=== PATIENT | male | born 1990 | race Caucasian/White ===

== ENCOUNTER 2023-06-24 17:19 | Emergency (ER) | payer SELFPAY ==
[2023-06-24 17:35] VITALS: BP 131/84; PULSE 74; RESP 19; TEMP 37; O2SAT 98; BMI 28.7
--- NOTE | 2023-06-24 17:39 | EXP.UTC ---
Discharge Plan Disposition Patient Disposition: Home, Self-Care Condition: Good Prescriptions Prescriptions: New pseudoephedrine HCl [Sudafed 12 Hour] 120 mg tablet extended release 120 mg PO BID PRN (Reason: nasal congestion) Qty: 20 0RF ondansetron 8 mg tablet,disintegrating 8 mg PO TID PRN (Reason: Nausea) Qty: 30 0RF No Action olanzapine [Zyprexa] 20 mg Tablet 20 mg PO DAILY buprenorphine-naloxone 2-0.5 mg film 1 film sublingual DAILY Referrals Follow up/Referrals: Provider,Referral, MD [Primary Care Provider] - See instructions Clinical Impressions Clinical Impression: Upper respiratory infection, Vomiting Stand Alone Forms Stand Alone Forms: Work/School Release Instructions Patient Instructions: DI for Viral Upper Respiratory Infection -- Adult Discharge ED Provider: Gloria Whiting [facility] [place] HPI General Stated complaint: VOMITTING, LG FEVER Time Seen by Provider: 06/24/23 17:43 History of Present Illness Provider Complaint: Congestion, drainage, sore throat, vomiting X 1 day. Low grade fever. Onset (ago): day(s) (1) Relieving factors: none Exacerbating factors: none Associated symptoms: denies other symptoms Treatments prior to arrival: none Related Data Home Medications Medication Instructions Recorded Confirmed buprenorphine 2 mg-naloxone 0.5 mg 1 film sublingual DAILY 06/24/23 06/24/23 sublingual film olanzapine 20 mg tablet (Zyprexa) 20 mg PO DAILY Depression 06/24/23 06/24/23 Previous Rx's Medication Instructions Recorded ondansetron 8 mg disintegrating 8 mg PO TID PRN Nausea #30 tabs 06/24/23 tablet pseudoephedrine HCl 120 mg 120 mg PO BID PRN nasal congestion 06/24/23 tablet,extended release (Sudafed #20 tabs 12 Hour) Allergies Allergy/AdvReac Type Severity Reaction Status Date / Time No Known Allergies Allergy Verified 06/24/23 17:46 [facility] Disclaimer: The information contained in this section may have been updated after the patient was seen, as this information can be updated by other users. Medical History (Updated 06/24/23 @ 17:49 by CIRILO Man) Anxiety Depression Social History Smoking Status: Smoker, status unknown alcohol intake: never current occupational status: employed Travel in the last 8 weeks: None ROS Obtained: Yes All systems reviewed & no additional complaints except as documented Constitutional Constitutional: Reports fever(s) and Reports malaise ENT Ears, Nose, Mouth, and Throat: Reports nasal congestion and Reports sore throat Respiratory Respiratory: Reports cough Gastrointestinal Gastrointestingal: Reports vomiting Physical Exam General General appearance: alert and in no apparent distress Head Head exam: atraumatic, normocephalic and normal inspection Eye Eye exam: Present normal appearance, PERRL and EOMI ENT ENT exam: Present normal exam, mucous membranes moist, TM's normal bilaterally and normal external ear exam Expanded ENT Exam Throat exam: Present other (PND) Neck Neck exam: Present normal inspection, full ROM and trachea midline; Absent meningismus or lymphadenopathy Chest Chest inspection: Present normal inspection and symmetric chest wall rise; Absent tenderness Respiratory Respiratory exam: Present normal lung sounds bilaterally; Absent respiratory distress Cardiovascular Cardiovascular exam: Present regular rate and normal rhythm; Absent JVD Abdominal Exam Abdominal exam: Present soft and normal bowel sounds; Absent distention, tenderness or guarding Extremities Exam Extremities exam: Present normal inspection, full ROM and normal capillary refill; Absent calf tenderness Back Exam Back exam: Present normal inspection; Absent tenderness Neurological Exam Neurological exam: Present alert and oriented X3 Psychiatric Psychiatric exam: Present normal affect and normal mood Skin Skin exam: Present warm, dry, intact and normal color Lymphatic Lympha
[2023-06-24 17:50] VITALS: BP 131/84; PULSE 74; RESP 19; TEMP 37; O2SAT 98
== END 2023-06-24 17:53 | disposition home or self-care (01) ==
PROVIDERS: Emergency Provider Physician Assistant
DX: J06.9 Acute upper respiratory infection, unspecified (principal); R11.10 Vomiting, unspecified; R50.9 Fever, unspecified; R09.81 Nasal congestion; R07.0 Pain in throat; F17.210 Nicotine dependence, cigarettes, uncomplicated; B34.9 Viral infection, unspecified
CPT/HCPCS: 99204; 99212; G0463

== ENCOUNTER 2023-09-18 18:28 | Emergency (ER) | payer MEDICAID, SELFPAY ==
[2023-09-18 18:43] VITALS: BMI 23.6
[2023-09-18] MEDS: TET/DIPHTH/PERT-ADULT 0.5ML SYRINGE 0.5 ML IM (18:45)
[2023-09-18 18:52] VITALS: BP 128/70; PULSE 88; RESP 21; TEMP 37; O2SAT 98
[2023-09-18 18:57] VITALS: BP 128/70; PULSE 88; RESP 21; TEMP 37; O2SAT 98; BMI 23.7
== END 2023-09-18 18:55 | disposition home or self-care (01) ==
LOC: UTC 18:35
PROVIDERS: Emergency Provider Nurse Practitioner; PCP Nurse Practitioner Family
DX: Z23 Encounter for immunization (principal); S61.001A Unspecified open wound of right thumb without damage to nail, initial encounter; W26.0XXA Contact with knife, initial encounter
CPT/HCPCS: 90471; 90715; 99212; G0463

== ENCOUNTER 2023-12-09 07:18 | Emergency (ER) | payer MEDICAID, SELFPAY ==
[2023-12-09 07:20] VITALS: BP 134/91; PULSE 62; RESP 12; TEMP 36.6; O2SAT 98; BMI 27.6
--- NOTE | 2023-12-09 07:31 | HMH.EDGENADL ---
Discharge Plan Disposition Patient Disposition: Home, Self-Care Condition: Good Prescriptions Prescriptions: New pseudoephedrine HCl [Sudafed] 30 mg tablet 30 mg PO Q6H PRN (Reason: nasal congestion) Qty: 20 0RF No Action olanzapine [Zyprexa] 20 mg Tablet 20 mg PO DAILY buprenorphine-naloxone 2-0.5 mg film 1 film sublingual DAILY pseudoephedrine HCl [Sudafed 12 Hour] 120 mg tablet extended release 120 mg PO BID PRN (Reason: nasal congestion) Qty: 20 0RF ondansetron 8 mg tablet,disintegrating 8 mg PO TID PRN (Reason: Nausea) Qty: 30 0RF Referrals Follow up/Referrals: Jung Johnson MD [Primary Care Provider] - See instructions Activity Restrictions/Add. Instructions Additional Instructions/Restrictions: You were seen in the ED today due to headache, congestion, sore throat. Please get plenty of rest and stay hydrated at home. Take Tylenol/ibuprofen for fever or pain. Return to the ED if symptoms worsen or if new concerning symptoms arise. Clinical Impressions Clinical Impression: Viral infection Stand Alone Forms Stand Alone Forms: Work/School Release Discharge ED Provider: Brenden Pollock General Adult HPI General Chief complaint: Upper Respiratory Infection Stated complaint: congestion, sore throat, headache Time Seen by Provider: 12/09/23 07:22 History of Present Illness HPI narrative: Patient is a 33-year-old male with history of anxiety/depression who presents due to flulike symptoms. Patient states for the past 2 days he has had headache, sore throat, congestion. States he was febrile yesterday. Reports he has been coughing. He has been taking Mucinex at home with minimal benefit. Denies any pain elsewhere. Denies any nausea/vomiting/diarrhea. Reports he has had sick contacts with similar symptoms. Related Data Home Medications Medication Instructions Recorded Confirmed buprenorphine 2 mg-naloxone 0.5 mg 1 film sublingual DAILY 06/24/23 06/24/23 sublingual film olanzapine 20 mg tablet (Zyprexa) 20 mg PO DAILY Depression 06/24/23 06/24/23 Previous Rx's Medication Instructions Recorded ondansetron 8 mg disintegrating 8 mg PO TID PRN Nausea #30 tabs 06/24/23 tablet pseudoephedrine HCl 120 mg 120 mg PO BID PRN nasal congestion 06/24/23 tablet,extended release (Sudafed #20 tabs 12 Hour) pseudoephedrine HCl 30 mg tablet 30 mg PO Q6H PRN nasal congestion 12/09/23 (Sudafed) #20 tabs Allergies Allergy/AdvReac Type Severity Reaction Status Date / Time No Known Allergies Allergy Verified 12/09/23 07:37 [facility] Disclaimer: The information contained in this section may have been updated after the patient was seen, as this information can be updated by other users. Medical History (Updated 12/09/23 @ 08:14 by Brenden Pollock MD) Depression Anxiety Social History Smoking Status: Current every day smoker alcohol intake: never current occupational status: employed Travel in the last 8 weeks: None ROS Obtained: Yes All systems reviewed & no additional complaints except as documented Constitutional Constitutional: Reports fever(s) and Reports headache(s) ENT Ears, Nose, Mouth, and Throat: Reports headache(s), Reports nasal congestion and Reports sinus pressure Neurologic Neurologic: Reports headache(s) Physical Exam General General appearance: alert and in no apparent distress Head Head exam: atraumatic, normocephalic and normal inspection Eye Eye exam: Present normal appearance, PERRL and EOMI ENT ENT exam: Present normal exam, normal oropharynx, mucous membranes moist, TM's normal bilaterally and normal external ear exam Neck Neck exam: Present normal inspection, full ROM and trachea midline; Absent meningismus or lymphadenopathy Chest Chest inspection: Present normal inspection and symmetric chest wall rise; Absent tenderness Respiratory Respiratory exam: Present normal lung sounds bilaterally; Absent respiratory distress Cardiovascular Cardiovascular exam: Present regular rate and normal rhythm; Absent JVD Abdominal Exam Abdominal exam: Present soft and normal bowel sounds; Absent distention, tenderness or guarding Extremities Exam Extremities exam: Present normal inspection, full ROM and normal capillary refill; Absent calf tenderness Back Exam Back exam: Present normal inspection; Absent tenderness Neurological Exam Neurological exam: Present alert and oriented X3 Psychiatric Psychiatric exam: Present normal affect and normal mood Skin Skin exam: Present warm, dry, intact and normal color Lymphatic Lymphatic Findings: no adenopathy Medical Decision Making Marvel Inquiry Pt receiving controlled substance: No Vital Signs: 12/09/23 07:20 Temperature 97.8 F Temperature Source Oral Pulse Rate [Left Radial] 62 Respiratory Rate 12 Blood Pressure [Right Arm] 134/91 H Blood Pressure Mean [Right Arm] 105 02 Sat by Pulse Oximetry 98 Oxygen Delivery Method Room Air Lab Data Lab Results 12/09/23 07:31: SARS-CoV-2 (PCR) Not detected, Influenza A Untype (PCR) Not detected, Influenza Type B (PCR) Not detected Orders (Tests/Meds): ED MEDICATIONS Discontinued Medications Generic Name Dose Route Start Last Admin Trade Name Rikki PRN Reason Stop Dose Admin Acetaminophen 1,000 mg 12/09/23 07:29 12/09/23 07:38 Acetaminophen 500mg Tab PO 12/09/23 07:30 1,000 mg ONCE ONE Administration Dexamethasone 10 mg 12/09/23 07:30 12/09/23 07:37 Dexamethasone 4mg Tablet PO 12/09/23 07:31 10 mg ONCE ONE Administration Ibuprofen 600 mg 12/09/23 07:29 12/09/23 07:38 Ibuprofen 600 Mg Tablet PO 12/09/23 07:30 600 mg ONCE ONE Administration Pseudoephedrine HCl 60 mg 12/09/23 07:31 12/09/23 07:40 Pseudoephedrine 30mg Tablet PO 12/09/23 07:32 60 mg ONCE ONE Administration ORDERS Category Date Time Status Rapid PCR Covid and Flu A/B Stat Lab 12/09/23 07:31 Completed Medical Decision Narrative: In summary, patient is healthy 33-year-old male, evaluated in the emergency department today due to headache, sore throat, congestion. On arrival, patient is afebrile, hemodynamically stable. On examination, patient is overall well-appearing. Differential diagnosis includes but is not limited to COVID-19, influenza, other viral upper respiratory infection. Patient given oral Tylenol, ibuprofen, Sudafed, Decadron. Workup initiated including COVID/flu swab. Labs independently interpreted by me and significant for negative COVID, flu. On reevaluation, patient continues to be well-appearing and symptoms have improved. He is appropriate for discharge at this time. Symptoms are consistent with viral infection. Prescription for Sudafed provided. Patient counseled on home care, given strict return precautions and agreeable to plan. 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 I considered the utility of treatment with antibiotics, but decided against this because it would be of little benefit given viral infection. I considered admitting the patient to the hospital for observation, and in shared decision-making with patient, decided on outpatient management. Critical Care Critical Care Time Critical Care Time: No
[2023-12-09 07:35] LABS: Coronavirus 19, PCR Not Detected (NotDetected); Influenza A, PCR Not Detected (NotDetected); Influenza B, PCR Not Detected (NotDetected)
[2023-12-09] MEDS: DEXAMETHASONE 4MG TABLET 10 MG PO (07:37)
[2023-12-09] MEDS: IBUPROFEN 600 MG TABLET PO (07:38)
[2023-12-09] MEDS: ACETAMINOPHEN 500MG TAB 1000 MG PO (07:38)
[2023-12-09] MEDS: PSEUDOEPHEDRINE 30MG TABLET 60 MG PO (07:40)
[2023-12-09 08:00] VITALS: BP 123/83; PULSE 49; O2SAT 97
[2023-12-09 08:14] VITALS: BP 123/83; PULSE 54; RESP 12; TEMP 36.7; O2SAT 98
== END 2023-12-09 08:17 | disposition home or self-care (01) ==
PROVIDERS: Emergency Provider Student in an Organized Health Care Education/Training Program; PCP Internal Medicine Adolescent Medicine
DX: R51.9 Headache, unspecified (principal); R07.0 Pain in throat; R09.81 Nasal congestion; B34.9 Viral infection, unspecified; F17.210 Nicotine dependence, cigarettes, uncomplicated
CPT/HCPCS: 87636; 99283

== ENCOUNTER 2023-12-23 17:36 | Emergency (ER) | payer MEDICAID, SELFPAY ==
[2023-12-23 17:45] VITALS: BP 124/79; PULSE 58; RESP 18; TEMP 36.8; O2SAT 96; BMI 27.3
--- NOTE | 2023-12-23 17:47 | ED_ITS ---
Discharge Plan Disposition Patient Disposition: Home, Self-Care Condition: Good Prescriptions Prescriptions: New ondansetron 4 mg Tablet,Disintegrating 4 mg PO Q8H PRN (Reason: Nausea) Qty: 12 0RF No Action olanzapine [Zyprexa] 20 mg Tablet 20 mg PO DAILY buprenorphine-naloxone 2-0.5 mg film 1 film sublingual DAILY fluoxetine 40 mg capsule 40 mg PO DAILY Patient Comments: TAKE 1 CAPSULE BY MOUTH EVERY DAY Referrals Follow up/Referrals: Jung Johnson MD [Primary Care Provider] - See instructions Activity Restrictions/Add. Instructions Additional Instructions/Restrictions: Go home and rest. It would be best if you rested tomorrow too. Take the zofran if you have nausea. Follow up with your regular doctor. Return if you have worsening symptoms. GO TO THE ER FOR ANY WORSENING SYMPTOMS OR CONCERN. Clinical Impressions Clinical Impression: Closed head injury Stand Alone Forms Stand Alone Forms: Work/School Release Instructions Patient Instructions: DI for Closed Head Injury, Closed Head Injury, Ondansetron Discharge ED Provider: Moiz Chery [facility] General Stated complaint: Dizziness Time Seen by Provider: 12/23/23 18:04 History of Present Illness Provider Complaint: He states that he has had vertigo since last night. He got up this morning to void and fell in his bathroom b/c of the vertigo. He hit his head on the carpeted floor when this happened. Through out today, he has continued to have vertigo. He was unable to go to work this evening because of the vertigo. He denies headache. He has had some episodes of blurry vision today, but he states that he does that at times with his vertigo symptoms. Related Data Home Medications Medication Instructions Recorded Confirmed buprenorphine 2 mg-naloxone 0.5 mg 1 film sublingual DAILY 06/24/23 12/23/23 sublingual film olanzapine 20 mg tablet (Zyprexa) 20 mg PO DAILY Depression 06/24/23 12/23/23 fluoxetine 40 mg capsule 40 mg PO DAILY 12/23/23 12/23/23 Previous Rx's Medication Instructions Recorded ondansetron 4 mg disintegrating 4 mg PO Q8H PRN Nausea #12 tabs 12/23/23 tablet Allergies Allergy/AdvReac Type Severity Reaction Status Date / Time No Known Allergies Allergy Verified 12/23/23 17:56 [facility] Disclaimer: The information contained in this section may have been updated after the patient was seen, as this information can be updated by other users. Medical History (Updated 12/23/23 @ 18:46 by Moiz Chery APRN) Depression Anxiety Social History Smoking Status: Current every day smoker alcohol intake: never current occupational status: employed Travel in the last 8 weeks: None ROS Obtained: Yes All systems reviewed & no additional complaints except as documented Constitutional Constitutional: Denies chills, Denies fever(s) and Reports headache(s) Eyes Eyes: Denies eye discharge ENT Ears, Nose, Mouth, and Throat: Denies disequilibrium, Reports dizziness, Denies otalgia, Reports headache(s) and Denies sore throat Cardiovascular Cardiovascular: Denies chest pain and Denies syncope Respiratory Respiratory: Denies shortness of breath, Denies chest congestion, Denies cough, Denies stridor and Denies wheezing Gastrointestinal Gastrointestingal: Reports as per HPI and nausea; Denies constipation, cramping, diarrhea or vomiting Musculoskeletal Musculoskeletal: Reports system reviewed and no additional complaints, except as documented and Denies arthralgias Integumentary/Breasts Skin/Breast: Denies rash Neurologic Neurologic: Denies confusion, Denies disequilibrium, Reports dizziness, Denies focal weakness, Reports headache(s), Denies paresthesias, Denies seizure-like activity and Denies syncope Allergic/Immunologic Allergic/Immunologic: Denies wheezing Physical Exam General General appearance: alert and in no apparent distress Head Head exam: atraumatic, normocephalic and normal inspection Eye Eye exam: Present normal appearance, PERRL and EOMI ENT ENT exam: Present normal exam, normal oropharynx, mucous membranes moist, TM's normal bilaterally and normal external ear exam Neck Neck exam: Present normal inspection, full ROM and trachea midline; Absent meningismus or lymphadenopathy Chest Chest inspection: Present normal inspection and symmetric chest wall rise; Absent tenderness Respiratory Respiratory exam: Present normal lung sounds bilaterally; Absent respiratory distress Cardiovascular Cardiovascular exam: Present regular rate and normal rhythm; Absent JVD Abdominal Exam Abdominal exam: Present soft and normal bowel sounds; Absent distention, tenderness or guarding Extremities Exam Extremities exam: Present normal inspection, full ROM and normal capillary refill; Absent calf tenderness Back Exam Back exam: Present normal inspection; Absent tenderness Neurological Exam Neurological exam: Present alert, oriented X3, CN II-XII intact, normal gait and reflexes normal; Absent motor sensory deficit Expanded Neurological Exam Speech: Present fluid speech Cranial nerves: Normal: EOM function (II, III, IV, ), facial sensation (V), facial palsy (VII), gag reflex (IX), spinal accessory function (XI) and tongue deviation (XII) Cerebellar function: normal gait Motor strength - LUE: 5/5 Motor strength - RUE: 5/5 Motor strength - LLE: 5/5 Motor strength - RLE: 5/5 Upper motor neuron exam: Normal: juan carlos neglect and sensory extinction Sensory exam upper extremity: Normal: light touch and 2 point discrimination Sensory exam lower extremity: Normal: light touch and 2 point discrimination DTR: 2+: biceps (L), biceps (R), patellar (L), patellar (R), Achilles tendon (L) and Achilles tendon (R) Psychiatric Psychiatric exam: Present normal affect and normal mood Skin Skin exam: Present warm, dry, intact and normal color Lymphatic Lymphatic Findings: no adenopathy Medical Decision Making Medical Records Medical records reviewed: No I reviewed the patient's medical records. Marvel Inquiry Pt receiving controlled substance: No Medical Decision Narrative: He refused transfer to the ER for further evaluation.
[2023-12-23 17:58] VITALS: BP 123/87; BP 124/79; BP 126/81; PULSE 58; PULSE 70; PULSE 71
--- NOTE | 2023-12-23 18:02 | ECG_ITS ---
APPROVED REPORT Exam: Resting ECG HR:57 bpm ECG Measurements Heart Rate 57 AXES ME 173 P 75 QRSd 95 QRS 54 QT 389 T 54 QTc 383 Conclusion SINUS BRADYCARDIA EARLY REPOLARIZATION [ST ELEVATION WITH NORMALLY INFLECTED T-WAVE] BORDERLINE ECG UNCONFIRMED REPORT Electronically signed by : Jung Johnson MD 12/24/2023 11:34:25
[2023-12-23] MEDS: ONDANSETRON 4MG ODT 4 MG SL (18:19)
[2023-12-23 18:49] VITALS: BP 123/87; PULSE 70; RESP 18; TEMP 36.8; O2SAT 96
== END 2023-12-23 18:51 | disposition home or self-care (01) ==
PROVIDERS: Emergency Provider Nurse Practitioner Family; PCP Internal Medicine Adolescent Medicine
DX: S09.90XA Unspecified injury of head, initial encounter (principal); R00.1 Bradycardia, unspecified; R42 Dizziness and giddiness; W19.XXXA Unspecified fall, initial encounter
CPT/HCPCS: 93005; 99212; 99214; G0463

== ENCOUNTER 2024-01-03 19:19 | Emergency (ER) | payer MEDICAID, SELFPAY ==
[2024-01-03 19:20] VITALS: BP 121/75; PULSE 71; RESP 18; TEMP 36.6; O2SAT 98; BMI 27.7
--- NOTE | 2024-01-03 19:46 | ED_ITS ---
Discharge Plan Disposition Patient Disposition: Home, Self-Care Condition: Good Prescriptions Prescriptions: New methylprednisolone [Medrol (Skip)] 4 mg tablets,dose pack See Rx Instructions .Route .COMPLEX 6 Days Qty: 21 0RF Rx Instructions: taper pack; amoxicillin-pot clavulanate 875-125 mg Tablet 1 tab PO Q12H Qty: 20 0RF guaifenesin [Mucinex] 600 mg tablet extended release 12hr 1,200 mg PO BID PRN (Reason: cough) Qty: 20 0RF No Action buprenorphine-naloxone 2-0.5 mg film 1 film sublingual DAILY fluoxetine 40 mg capsule 40 mg PO DAILY Patient Comments: TAKE 1 CAPSULE BY MOUTH EVERY DAY Referrals Follow up/Referrals: Jung Johnson MD [Primary Care Provider] - See instructions Activity Restrictions/Add. Instructions Additional Instructions/Restrictions: * Start antibiotic today. Be sure to complete entire prescription even if feeling better * Monitor temp. Tylenol every 4 hours as needed and / or ibuprofen every 6 hours as needed ( As long as your primary care physician has told you that it ok to take both. For fever/aches/pains ER if no less than 101 despite Tylenol or Motrin * Humidifier/vaporizer or hot steamy shower * Mucinex for your cough and cough suppressant only at night. Be sure to drink lots of water. *Start steroid today. Helps with inflammation therefore, cough and wheezing. Follow directions on the package. Reviewed side effects. Patient reports taking them before. Follow up IMMEDIATELY for new or worsening of symptoms OR no noticeable improvement over the next 48-72 hours. 911 immediately for any life threatening symptoms such as chest pain or difficulty breathing Clinical Impressions Clinical Impression: Sinusitis Stand Alone Forms Stand Alone Forms: Work/School Release Instructions Patient Instructions: DI for Sinusitis, Sinusitis, Acute Bronchitis Discharge ED Provider: Apple Moncada [facility] [place] HPI General Stated complaint: johnna, nausea, cough Mode of Arrival: Ambulatory Source of Information: Patient Limitations: No Limitations Time Seen by Provider: 01/03/24 19:46 Description of Symptoms (Recalled from Triage Doc. by RN): Pt's symptoms are runny nose, URENA, diarrhea, and productive cough. HEENT Symptoms (Recalled from RN notes): Yes Resp Symptoms (Recalled from RN notes): No Skin Symptoms (Recalled from RN notes): No MS Symptoms (Recalled from RN notes): No Functional Status (Recalled from RN notes): n/a History of Present Illness Provider Complaint: Patient states that he has been having sinus congestion for close to a week but yesterday the pressure in his sinuses got worse and he started having drainage in the back of his throat and coughing up some mucous States today the pressure in his sinuses has continued and continued to have a cough so he came in to get checked Related Data Home Medications Medication Instructions Recorded Confirmed buprenorphine 2 mg-naloxone 0.5 mg 1 film sublingual DAILY 06/24/23 01/03/24 sublingual film fluoxetine 40 mg capsule 40 mg PO DAILY 12/23/23 01/03/24 Previous Rx's Medication Instructions Recorded amoxicillin 875 mg-potassium 1 tab PO Q12H #20 tabs 01/03/24 clavulanate 125 mg tablet guaifenesin 600 mg tablet, 1,200 mg (2 x 600 mg) PO BID PRN 01/03/24 extended release 12 hr (Mucinex) cough #20 tabs methylprednisolone 4 mg tablets in See Rx Instructions .Route 01/03/24 a dose pack (Medrol (Skip)) .COMPLEX 6 days #21 tabs Allergies Allergy/AdvReac Type Severity Reaction Status Date / Time No Known Allergies Allergy Verified 01/03/24 19:36 Worker's Comp Is this a Worker's Comp case?: No [facility] Disclaimer: The information contained in this section may have been updated after the patient was seen, as this information can be updated by other users. Medical History (Updated 01/03/24 @ 19:55 by Apple Moncada APRN) Depression Anxiety Social History Smoking Status: Current every day smoker alcohol intake: never current occupational status: employed Travel in the last 8 weeks: None ROS Obtained: Yes All systems reviewed & no additional complaints except as documented and Yes Systems reviewed as appropriate & no additional complaints except as documented Constitutional Constitutional: Reports system reviewed and no additional complaints, except as documented, Reports as per HPI and Reports headache(s) ENT Ears, Nose, Mouth, and Throat: Reports system reviewed and no additional complaints, except as documented, Reports as per HPI, Reports headache(s), Reports sinus pain and Reports sinus pressure Cardiovascular Cardiovascular: Reports system reviewed and no additional complaints, except as documented and Reports as per HPI Respiratory Respiratory: Reports system reviewed and no additional complaints, except as do cumented, Reports as per HPI, Reports chest congestion and Reports cough Gastrointestinal Gastrointestingal: Reports system reviewed and no additional complaints, except as documented and as per HPI Neurologic Neurologic: Reports headache(s) Physical Exam General General appearance: alert and in no apparent distress ENT ENT exam: Present mucous membranes moist Expanded ENT Exam Nose exam: Present sinus tenderness Throat exam: Present other (PND noted) Respiratory Respiratory exam: Present normal lung sounds bilaterally; Absent respiratory distress or wheezes Cardiovascular Cardiovascular exam: Present regular rate, normal rhythm and normal heart sounds Neurological Exam Neurological exam: Present alert, oriented X3 and normal gait Medical Decision Making Marvel Inquiry Pt receiving controlled substance: No Marvel was queried for this patient: No Vital Signs: 01/03/24 19:20 Temperature 97.8 F Temperature Source Oral Pulse Rate [Right Radial] 71 Respiratory Rate 18 Blood Pressure [Right Arm] 121/75 Blood Pressure Mean [Right Arm] 90 Blood Pressure Source [Right Arm] Automatic Cuff Blood Pressure Position [Right Arm] Sitting 02 Sat by Pulse Oximetry 98 Oxygen Delivery Method Room Air
[2024-01-03 20:24] VITALS: BP 121/75; PULSE 71; RESP 18; TEMP 36.6; O2SAT 98
== END 2024-01-03 20:24 | disposition home or self-care (01) ==
PROVIDERS: Emergency Provider Nurse Practitioner; PCP Internal Medicine Adolescent Medicine
DX: J01.90 Acute sinusitis, unspecified (principal); R09.82 Postnasal drip; R05.9 Cough, unspecified; F17.210 Nicotine dependence, cigarettes, uncomplicated
CPT/HCPCS: 99212; 99214; G0463

== ENCOUNTER 2024-03-27 00:16 | Emergency (ER) | payer MEDICAID, SELFPAY ==
[2024-03-27 00:18] VITALS: BP 149/104; PULSE 87; RESP 18; TEMP 37.1; O2SAT 98; BMI 29.5
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
[2024-03-27 00:48] VITALS: BP 149/104; PULSE 89; RESP 21; TEMP 36.7; O2SAT 100
== END 2024-03-27 00:51 ==
PROVIDERS: Emergency Provider Emergency Medicine; PCP Internal Medicine Adolescent Medicine
DX: T75.4XXA Electrocution, initial encounter (principal); Y35.833A Legal intervention involving a conducted energy device, suspect injured, initial encounter; M54.2 Cervicalgia
CPT/HCPCS: 99282

== ENCOUNTER 2024-04-10 14:20 | Emergency (ER) | payer MEDICAID, SELFPAY ==
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
[2024-04-10 14:35] VITALS: BP 148/105; PULSE 70; RESP 20; TEMP 36.8; O2SAT 95; BMI 29.5
[2024-04-10 14:41] VITALS: BP 146/108; PULSE 77; RESP 16; TEMP 36.7
== END 2024-04-10 15:00 | disposition home or self-care (01) ==
PROVIDERS: Emergency Provider Emergency Medicine
DX: L08.9 Local infection of the skin and subcutaneous tissue, unspecified (principal); M54.2 Cervicalgia
CPT/HCPCS: 99283

== ENCOUNTER 2024-05-30 07:02 | Outpatient (CLI) | payer MEDICAID, SELFPAY ==
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
== END 2024-05-30 23:59 | disposition home or self-care (01) ==
LOC: RAD 07:05
PROVIDERS: PCP Nurse Practitioner Family; Visit Provider Nurse Practitioner
DX: K21.9 Gastro-esophageal reflux disease without esophagitis (principal); R09.A2 Foreign body sensation, throat; S19.9XXA Unspecified injury of neck, initial encounter
CPT/HCPCS: 70490

== ENCOUNTER 2024-06-27 17:47 | Outpatient (CLI) | payer OTHER, SELFPAY ==
[2024-06-27 18:33] LABS: Clostridium Difficile A/B, PCR Not Detected (NotDetected); Enteropathogenic E coli Not Detected (NotDetected); Plesimonas Shigalloides, PCR Not Detected (NotDetected); Salmonella, PCR Not Detected (NotDetected); Vibrio Cholerae Not Detected (NotDetected); Vibrio, PCR Not Detected (NotDetected); Yersinia Entercolitica, PCR Not Detected (NotDetected)
[2024-06-27 18:34] LABS: Adenovirus F 40/41, stool Not Detected (NotDetected); Astrovirus Not Detected (NotDetected); Cryptosporidium Not Detected (NotDetected); Cyclospora Cayetanesis Not Detected (NotDetected); Entamoeba histolytica Not Detected (NotDetected); Enterotoxigenic E coli Not Detected (NotDetected); Giardia lamblia Not Detected (NotDetected); Norovirus Not Detected (NotDetected); Rotavirus A Not Detected (NotDetected); Sapovirus Not Detected (NotDetected); Shiga-like toxin E coli Not Detected (NotDetected); Shigella Enterovasive E coli Not Detected (NotDetected)
[2024-06-27 22:57] LABS: Campylobacter Detected (NotDetected); Enteroaggregative E coli Detected (NotDetected)
== END 2024-06-27 23:59 | disposition home or self-care (01) ==
PROVIDERS: PCP Nurse Practitioner Family; Visit Provider Nurse Practitioner Family
DX: A04.5 Campylobacter enteritis (principal); A04.4 Other intestinal Escherichia coli infections; R19.7 Diarrhea, unspecified
CPT/HCPCS: 87507

== ENCOUNTER 2024-08-16 12:12 | Emergency (ER) | payer OTHER, SELFPAY ==
--- NOTE | 2024-08-16 12:24 | XR_ITS ---
PROCEDURE INFORMATION: Exam: XR Chest Exam date and time: 08/16/2024 12:23 PM Age: 34 years old Clinical indication: Shortness of breath; Additional info: SOA, HX of tb TECHNIQUE: Imaging protocol: Radiologic exam of the chest. Views: 2 views. COMPARISON: CT SOFT TISSUE NECK WO CON 05/30/2024 7:13 AM FINDINGS: Lungs: No evidence of pneumonia or interstitial edema. No cavitary lesions to suggest tuberculosis. Pleural spaces: Unremarkable. No pleural effusion. No pneumothorax. Heart/Mediastinum: Unremarkable. No cardiomegaly. Bones/joints: Unremarkable. IMPRESSION: 1. No evidence of pneumonia or interstitial edema. 2. No cavitary lesions to suggest tuberculosis.
[2024-08-16 12:37] VITALS: BP 129/79; PULSE 80; RESP 20; TEMP 36.9; O2SAT 95; BMI 28.0
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
[2024-08-16 14:17] LABS: Coronavirus 19, PCR Not Detected (NotDetected); Influenza A, PCR Not Detected (NotDetected); Influenza B, PCR Not Detected (NotDetected)
[2024-08-16 14:19] VITALS: BP 129/79; PULSE 80; RESP 20; TEMP 36.9
== END 2024-08-16 14:21 | disposition home or self-care (01) ==
PROVIDERS: Emergency Provider Nurse Practitioner Family; PCP Nurse Practitioner Family
DX: J20.9 Acute bronchitis, unspecified (principal); B34.9 Viral infection, unspecified
CPT/HCPCS: 71046; 87636; 99213; G0381

== ENCOUNTER 2024-10-10 09:46 | Day surgery (SDC) | payer OTHER, SELFPAY ==
[2024-10-10 11:10] VITALS: BP 128/73; PULSE 55; RESP 18; TEMP 36.4; O2SAT 97; BMI 28.8
[2024-10-10] MEDS: LACTATED RINGERS 1000ML 1,000 ML 50 ML IV (11:24)
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
--- NOTE | 2024-10-10 11:55 | P.HP_ITS ---
History of Present Illness *Admission Date: 10/10/24 *Reason for visit:: Nausea, vomiting and heartburn *History of present illness: Mr. Solares is a 34-year-old gentleman who is here for diagnostic upper endoscopy secondary to digestive difficulties. He has had abdominal pain, bloating, he artburn and reflux. He has had some diarrhea for 7 months. He did note some dark blood with his stool. He has chronic heartburn and reflux with some nausea. He has not tried any [id number] medications and is currently not on any treatment. He is inquiring about his liver but there is no report of any liver disease and he has not had any liver evaluation. He was tested negative for hepatitis C. He does state that he had a laryngoscope more recently and the ENT physician told him that he had more significant LPR and should have an upper endoscopy. He has not been on PPI therapy. He did have a visit to the ED in June 2024 and had a stool panel that was positive for Campylobacter and enteroaggregative E. coli. [facility] Disclaimer: The information contained in this section may have been updated after the patient was seen, as this information can be updated by other users. Medical History GERD (gastroesophageal reflux disease) Globus sensation Traumatic injury of neck Difficulty swallowing Depression Anxiety Surgical History History of brain surgery History of chest tube placement History of left knee surgery History of ankle surgery bilateral ankles Family History (Updated 10/10/24 @ 11:12 by Caroline Steele RN) Other PTSD (post-traumatic stress disorder) Social History (Updated 10/10/24 @ 11:13 by Caroline Steele RN) Smoking Status: Current every day smoker tobacco type: cigarettes packs per day: 1 alcohol intake: never substance use type: marijuana current occupational status: unemployed Travel in the last 8 weeks: None caffeine: No Have you lived/traveled outside [place] in past 30 days?: No Contact w/someone who lives/traveled outside [place] past 30 days?: No Exposure to someone with infectious disease in past 14 days?: No Do you have a fever (greater than 100.4 F or 38 C)?: No Have you tested positive for COVID-19: Yes Exposed to someone with COVID-19 in past 14 days?: No Do you have a sore throat?: No Do you have a cough?: No Do you have any weakness?: No Are you experiencing any nausea/vomitting?: No Do you have any diarrhea?: No Are you experiencing any unusual bleeding?: No Do you have any muscle aches/pain?: No Do you have any abdominal pain?: No Are you experiencing loss of taste or smell?: No Other Medical History Have you received the Flu Vaccine for this season: No Have you received the Pneumonia Vaccine: No Review of Systems Review of Systems Review of systems (narrative): Negative *Cardiovascular Comments: Negative *Gastrointestinal Comments: Negative *Genitourinary Comments: Negative *Musculoskeletal Comments: Negative *Neurologic Comments: Negative Meds Home Medications and Allergies Home Medications ?Medication ?Instructions ?Recorded ?Confirmed ?Type No Known Home Medications 08/29/24 10/10/24 History New Prescriptions to Start Prescriptions: Allergies Allergy/AdvReac Type Severity Reaction Status Date / Time No Known Allergies Allergy Verified 10/10/24 11:10 Exam Data for Last 24 hours Vital signs and Labs for Last 24 Hours: Temp Pulse Resp BP Pulse Ox O2 Del Method 97.6 F 55 L 18 128/73 97 Room Air 10/10/24 11:10 10/10/24 11:10 10/10/24 11:10 10/10/24 11:10 10/10/24 11:10 10/10/24 11:10 I & O for Last 24 hours: Intake & Output 10/07/24 10/08/24 10/09/24 10/10/24 23:59 23:59 23:59 23:59 Weight 195 lb *Routine HEENT Exam Head: Present normocephalic Eye: Present EOMI and PERRL ENT: Present mucous membranes moist *Routine Neck Exam Neck: Present supple *Routine Respiratory Exam Respiratory: Present CTA bilaterally *Routine Cardiovascular Exam Cardiovascular: Present RRR *Routine Abdominal Exam Abdominal: Present soft and normoactive bowel sounds; Absent tenderness *Routine Rectal Exam Rectal:: deferred *Routine Genitalia Exam Genitalia:: deferred *Routine Extremities Exam Extremities: Absent cyanosis, clubbing or edema *Routine Skin Exam Skin: Present warm; Absent rash *Routine Neurological Exam Neurological: Present alert and oriented X3 Assessment and Plan *Assessment and plan (1) GERD (gastroesophageal reflux disease): Status: Acute Category: Medical Code(s): K21.9 - Gastro-esophageal reflux disease without esophagitis (2) Heartburn: Status: Acute Category: Medical Code(s): R12 - Heartburn (3) Globus sensation: Status: Acute Category: Medical Code(s): R09.A2 - Foreign body sensation, throat (4) Dysphagia: Status: Acute Category: Medical Code(s): R13.10 - Dysphagia, unspecified Plan A/P: 1. GERD with abdominal pain, bloating, heartburn and reflux. He also has some globus/dysphagia is the preprocedural diagnosis. The patient will be anesthetized/sedated using MAC sedation. The patient has been seen and examined. Cardiac and lung assessment prior to the examination is stable. Proceed with planned diagnostic EGD
--- NOTE | 2024-10-10 11:56 | P.PCN_ITS ---
[facility] Procedure Note Date: 10/10/24 Time: 12:16 Procedure Note:: Upper Endoscopy Procedure Report: Esophagogastroduodenoscopy with cold biopsies and TTS balloon dilation Endoscopost: Gallito Cardona II, MD Referring Physician: FELIPE Dee Date of Procedure: October 10, 2024 Equipment: Olympus GIF 190 standard upper endoscope Sedation: MAC sedation Indications: Mr. Solares is a 34-year-old gentleman who is here for diagnostic upper endoscopy secondary to digestive difficulties. He has had abdominal pain, bloating, heartburn and reflux. He has had some diarrhea for 7 months. He did note some dark blood with his stool. He has chronic heartburn and reflux with some nausea. He has not tried any [id number] medications and is currently not on any treatment. He was inquiring about his liver but there is no report of any liver disease and he has not had any liver evaluation. He was tested negative for hepatitis C. He does state that he had a laryngoscope more recently and the ENT physician told him that he had more significant LPR and should have an upper endoscopy. He has not been on PPI therapy. He did have a visit to the ED in June 2024 and had a stool panel that was positive for Campylobacter and enteroaggregative E. coli. Procedure: Prior to the procedure, a history and physical exam was performed, and patient's medications and allergies were reviewed. The risks, benefits and alternatives of the sedation and procedure were discussed with the patient. All questions were answered and informed consent was obtained. The patient was brought to the procedure room. Patient identification and proposed procedure were verified by the physician and the nurse. The patient was placed in a left lateral decubitus position and the scope was passed under direct vision. Throughout the procedure, the patient's blood pressure, pulse, and oxygen saturations were monitored continuously. The upper GI endoscopy was accomplished without difficulty. The patient tolerated the procedure well. Findings: The scope was passed directly into the upper esophagus and advanced to the third portion of the duodenum. The post bulbar duodenum and duodenal bulb were normal with normal mucosa and conniventes. The scope was withdrawn through a normal duodenal bulb and pylorus into the stomach. There was some very mild linear erythema of the antrum consistent with mild linear reactive gastropathy and biopsies were obtained from the antrum. The body and fundus of the stomach were normal. Upon retroflexion there was a very small sliding 1 to 2 cm hiatal hernia. The scope was then withdrawn into the esophagus. There were 3 very short shallow erosions at the GE junction consistent with grade A (LA classification) reflux esophagitis. There also appeared to be very faint distal esophageal varices. There was no ring, corrugation or furrowing. There was no evidence of Calix's esophagus. The entire esophagus was dilated to 54 Portuguese/18 mm with a TTS hydrostatic balloon. There was mild resistance at the cricopharyngeus. The remainder of the esophageal mucosa was normal. Impression: 1. Grade A reflux esophagitis with moderate esophageal dysmotility and very small sliding 1 to 2 cm hiatal hernia 2. Faint grade 1 esophageal varices 3. Mild linear reactive gastropathy Plan: I would like for the patient to begin a resume the omeprazole 40 mg daily. I am going to obtain labs today including CMP, HCV and HCV FibroSure. I will discuss the findings with the patient and family.
[2024-10-10 12:01] VITALS: O2SAT 98
[2024-10-10 12:23] VITALS: BP 125/81; PULSE 88; RESP 16; TEMP 36.3; O2SAT 93
[2024-10-10 12:33] VITALS: BP 130/80; PULSE 90; RESP 16; O2SAT 95
[2024-10-10 12:43] VITALS: BP 121/74; PULSE 61; RESP 16; O2SAT 96
[2024-10-10 12:53] VITALS: BP 122/76; PULSE 65; RESP 16; O2SAT 97
[2024-10-10 12:54] LABS: Basophils # 0.1 K/mm3 (0-0.2); Basophils % 0.7 % (0.1-2.0); Eosinophils # 0.2 K/mm3 (0.0-0.4); Eosinophils % 2.5 % (0.1-12.0); Hematocrit 46.6 % (42.0-52.0); Hemoglobin 16.1 g/dL (14.1-18.0); Lymphocytes # 1.8 K/mm3 (0.7-4.5); Lymphocytes % 20.2 % (10-50); Mean Corpuscular HGB Conc 34.5 g/dL (31.8-35.4); Mean Corpuscular Hemoglobin 29.7 pg (27.0-31.2); Mean Corpuscular Volume 85.8 fl (80-94); Mean Platelet Volume 10.2 fl (7.4-10.4); Monocytes # 0.8 K/mm3 (0.1-1.0); Monocytes % 8.5 % (1.7-9.3); Neutrophils # 5.9 K/mm3 (1.8-7.8); Neutrophils % 67.4 % (37.0-80.0); Platelet Count 250 K/mm3 (142-424); Red Blood Count 5.43 M/mm3 (4.60-6.20); Red Cell Distribution Width 12.7 % (11.5-17.5); White Blood Count 8.8 K/mm3 (4.8-10.8)
[2024-10-10 13:14] LABS: Albumin Level 4.9 g/dl (3.5-5.0); Chloride 104 mmol/L (98-107); Potassium 4.2 mmoL/L (3.5-5.1); Sodium 139 mmol/L (136-145)
[2024-10-10 13:17] LABS: Alanine Aminotransferase 32 U/L (12-78); Albumin/Globulin Ratio 1.9 (1.1-1.8); Alkaline Phosphatase 79 U/L (38-126); Anion Gap 12.2 mEq/L (5-15); Aspartate Amino Transferase 43 U/L (17-59); Bilirubin,Total 1.1 mg/dl (0.2-1.3); Blood Urea Nitrogen 13 mg/dl (9-20); Calcium 8.9 mg/dl (8.4-10.2); Carbon Dioxide 27 mmol/L (22.0-30.0); Creatinine Clearance Estimated 147 mL/min (50-200); Estimated Glomerular Filt Rate 98 ml/min (>60); GFR (African American) 118 ML/MIN (>60); Globulin 2.6 g/dL (1.3-3.2); Glucose 119 mg/dl (74-100); Total Protein,Serum 7.5 g/dl (6.3-8.2)
[2024-10-10 14:07] LABS: Hepatitis C Ab Qual. W/ RFX NEGATIVE (Negative)
[2024-10-13 06:21] LABS: ALT (SGPT) P5P 24 IU/L (0-55); Alpha 2-Macroglobulins, Qn 137 mg/dL (110-276); Apolipoprotein A-1 135 mg/dL (101-178); Bilirubin, Total 0.2 mg/dL (0.0-1.2); Fibrosis Score 0.04 (0.00-0.21); GGT 18 IU/L (0-65); Haptoglobin 118 mg/dL (17-317); Necroinflammat Activity Grade A0-No activity (.); Necroinflammat Activity Score 0.07 (0.00-0.17)
== END 2024-10-10 13:00 | disposition home or self-care (01) ==
PROVIDERS: Visit Provider Internal Medicine Gastroenterology
PROC: 0DJ08ZZ Inspection of Upper Intestinal Tract, Via Natural or Artificial Opening Endoscopic (ICD-10-PCS; CPT 43239; principal; 2024-10-10 12:30)
DX: K21.00 Gastro-esophageal reflux disease with esophagitis, without bleeding (principal); K44.9 Diaphragmatic hernia without obstruction or gangrene; K22.4 Dyskinesia of esophagus; I85.00 Esophageal varices without bleeding; R12 Heartburn; R13.10 Dysphagia, unspecified; R11.2 Nausea with vomiting, unspecified
CPT/HCPCS: 43239; 43249; 36415; 80053; 81517; 82172; 82247; 82977; 83010; 83883; 84460; 85025; 86803; C1726; J7120

== ENCOUNTER 2024-10-31 14:50 | Outpatient (CLI) | payer OTHER, SELFPAY ==
[2024-10-31 18:03] LABS: HDL Cholesterol 53 mg/dl (40-60); Phosphorous 3.1 mg/dl (2.5-4.5)
[2024-10-31 18:24] LABS: Free T4 (Free Thyroxine) 1.12 ng/dl (0.78-2.19)
[2024-10-31 18:27] LABS: 25-OH Vitamin D, Total 38.3 ng/mL (30-100)
[2024-10-31 18:40] LABS: Thyroid Stimulating Hormone 2.17 uIU/mL (0.465-4.68)
[2024-10-31 18:59] LABS: Vitamin B12 353 pg/mL (239-931)
[2024-10-31 19:01] LABS: Hemoglobin A1C 5.1 % (4.0-6.0)
[2024-10-31 19:28] LABS: Iron 164 ug/dL (49-181)
[2024-10-31 19:29] LABS: Chol/HDL Ratio 4.9 (1-3.5); Cholesterol 260 mg/dl (140-200); Triglycerides 225 mg/dl (30-150); VLDL Cholesterol 45 mg/dL (0-40)
[2024-10-31 19:38] LABS: Total Iron Binding Capacity 373 ug/dL (261-462)
== END 2024-10-31 23:59 | disposition home or self-care (01) ==
LOC: LAB.DROPOF 11-01 12:47
PROVIDERS: PCP Nurse Practitioner Family; Visit Provider Nurse Practitioner Family
DX: Z13.220 Encounter for screening for lipoid disorders (principal); Z13.1 Encounter for screening for diabetes mellitus; R53.83 Other fatigue; G25.81 Restless legs syndrome; F41.9 Anxiety disorder, unspecified; F32.A Depression, unspecified; R13.10 Dysphagia, unspecified; K21.9 Gastro-esophageal reflux disease without esophagitis; Z68.29 Body mass index [BMI] 29.0-29.9, adult; E66.9 Obesity, unspecified
CPT/HCPCS: 80061; 82306; 82607; 82728; 83036; 83540; 83550; 83735; 84100; 84439; 84443